=== PATIENT | female | born 1980 | race Caucasian/White ===

== ENCOUNTER 2019-07-22 18:38 | Emergency (ER) | payer OTHER ==
[~2019-07-22] VITALS: Ht 157.5 cm; Wt 86.6 kg
[2019-07-22 18:56] VITALS: Ht 157.5 cm; Wt 86.6 kg
[2019-07-23 00:40] VITALS: BP 124/86
== END 2019-07-23 00:40 | disposition home or self-care (01) ==
LOC: ED 18:38
DX: J02.9 Acute pharyngitis, unspecified (principal); R49.0 Dysphonia; E11.9 Type 2 diabetes mellitus without complications
CPT/HCPCS: J1100; J1885